=== PATIENT | male | born 1935 | race Caucasian/White ===

== ENCOUNTER 2017-08-28 06:09 | Emergency (ER) | payer OTHER, MEDICARE ==
[~2017-08-28] VITALS: Ht 172.7 cm; Wt 79.4 kg
[2017-08-28 06:17] VITALS: BP 126/81
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
--- NOTE | 2017-08-28 07:06 | RADIOLOGY REPORT ---
EXAMINATION: XR RIBS, RIGHT CLINICAL INFORMATION: Right rib injury COMPARISON: None TECHNIQUE: 3 views of the right ribs were obtained. PA view of the chest. FINDINGS: Lungs are clear. No consolidation, pneumothorax, or pleural effusion. The cardiomediastinal silhouette and pulmonary vasculature are normal. There is a marker positioned at the lateral lower right ribs. There is a fracture of the lateral right ninth rib which is essentially nondisplaced. IMPRESSION: Nondisplaced right lateral ninth rib fracture.
== END 2017-08-28 07:16 ==
LOC: ERH 06:09
DX: S22.31XA Fracture of one rib, right side, initial encounter for closed fracture (principal); W01.0XXA Fall on same level from slipping, tripping and stumbling without subsequent striking against object, initial encounter; Y93.9 Activity, unspecified; Y92.9 Unspecified place or not applicable
CPT/HCPCS: 71100-RT